=== PATIENT | female | born 1960 | race Caucasian/White ===

== ENCOUNTER → 2016-06-05 | Outpatient (CLI) | payer OTHER ==
[~2016-06-05] MED LIST: ALEVE-D SINUS1 EACH PO; LISINOPRIL-HCTZ1 T19 PO; LISINOPRIL10 MG PO; LORTAB 5/500 TA1 TA1 PO; LYRICA PO; MOBIC15 MG; NEURONTIN300 MG PO; NEXIUM PO; NORCO 10/3251 TAB PO; OMEPRAZOLE40 M1 PO; XANAX0.5 MG PO
--- NOTE | ~2016-06-05 | EKG ---
PATIENT: RICCI EARL UNIT #: [id number] Ventricular Rate: 68 BPM Atrial Rate: 68 BPM P-R Interval: 132 ms QRS Duration: 78 ms Q-T Interval: 422 ms QTC Calculation(Bezet): 448 ms P [place]: 29 degrees Calculated T [place]: 12 degrees Diagnosis Line: Normal sinus rhythm Diagnosis Line: Normal ECG Diagnosis Line: No previous ECGs available Diagnosis Line: Confirmed by RUBEN POZO MD ([id number]) on 06/05/2016 Diagnosis Line: 6:26:13 PM INTERPRETING MD: NOHELIA GIBBS
--- NOTE | ~2016-06-05 | CR63 ---
[facility] A Service of [facility] RADIOLOGY TEXT RESULTS PATIENT: RICCI EARL LOCATION: [facility] : 58 UNIT #: [id number] AGE: [address]: Tyler Reyes MD SEX: F ORDER DR: [id number] [facility] [address] [place], [place] [address] [id number] O MR#: [id number] Acc #: [id number] NAME: RICCI EARL : 1960 SEX: F STUDY DATE/TIME: 06/05/2016 13:19 UNIT: [facility] ROOM: STUDY DESCRIPTION: CR Chest 2 View Attending Physician: Tyler Reyes M.D. Referring Physician: Tyler Reyes M.D. Ordering Physician: Tyler Reyes M.D. Primary Care Physician: No Primary Care Physician MEDICAL IMAGING REPORT This report is preliminary unless electronic signature is present EXAM Chest, 2 views dated 06/05/2016. COMPARISON STUDIES None HISTORY The patient is to have right knee arthroscopy. Preprocedural evaluation. FINDINGS 2 views of the chest were obtained. PA and lateral examination of the chest upright shows a good expansion of the parenchyma with a normal distribution of the pulmonary vascularity. There is no indication of congestion, effusion, infiltrate, tumor, or nodular density. The pleural reflections and diaphragmatic contours are normal. The cardiac silhouette and mediastinal anatomy is within normal limits. There are prominent anterior endplate osteophytes involving 2 adjacent midthoracic vertebral bodies. Postoperative changes are noted in the upper abdomen with surgical ariana, likely related to cholecystectomy. Correlate with history. IMPRESSION Normal chest. Dictated by... Lucretia Laughlin M.D. THIS IS AN ELECTRONICALLY VERIFIED REPORT Lucretia Laughlin M.D. at 06/06/2016 3:39 PM [facility] A Service of [facility] RADIOLOGY TEXT RESULTS PATIENT: RICCI EARL LOCATION: [facility] : 58 UNIT #: [id number] AGE: [address]: Tyler Reyes MD SEX: F ORDER DR: KALLIE/zion TD: 06/05/2016 17:10 JOB #: [id number] MEDICAL IMAGING REPORT COPY
[2016-06-05 13:00] LABS: URINE APPEARANCE CLEAR; URINE BILIRUBIN NEG (NEG); URINE BLOOD NEG (NEG); URINE COLOR YELLOW; URINE GLUCOSE NEG (NEG); URINE KETONE 1+ (NEG); URINE LEUKOCYTE ESTERASE 2+ (NEG); URINE NITRATE NEG (NEG); URINE PROTEIN NEG (NEG); URINE SPECIFIC GRAVITY 1.023 (1.003-1.035); URINE UROBILINOGEN 0.2 MG/DL (NEG)
[2016-06-05 13:02] LABS: BASOPHIL# 0.1 X10e3 (0-0.3); BASOPHIL% 0.8 % (0-2.5); CULTURE INDICATED? YES; EOSINOPHIL# 0.2 X10e3 (0-0.7); EOSINOPHIL% 2.7 % (0.0-7.0); HEMOGLOBIN 14.5 gm/dL (12.0-16.0); LYMPHOCYTE# 3.6 X10e3 (1.0-3.5); LYMPHOCYTE% 43.1 % (17.0-45.0); MEAN CELL VOLUME 85.8 FL (83-96); MEAN CORPUSCULAR HEMOGLOBIN 29.6 PG (28-34); MEAN CORPUSCULAR HGB CONC 34.5 g/dL (30-36); MEAN PLATELET VOLUME 8.5 FL (6.5-11.5); MONOCYTE# 0.7 X10e3 (0-1.0); MONOCYTE% 8.7 % (3.0-12.0); NEUTROPHIL# 3.7 X10e3 (1.5-7.1); NEUTROPHIL% 44.7 % (40-75); PLATELET COUNT 275 X10e3 (140-420); RED CELL DISTRIBUTION WIDTH 12.3 % (11.0-15.5); URBCS1 AUWI 0-2 /[HPF] (0-2); URINE BACTERIA AUWI NEG (NEGATIVE); URINE SQUAMOUS EPITHELIAL CELL OCC /[HPF]; WHITE BLOOD COUNT 8.3 X10e3 (4.0-10.5)
[2016-06-05 13:03] LABS: DIFF IND NO
[2016-06-05 13:11] LABS: URINE SOURCE CLEAN CATCH
[2016-06-05 13:15] LABS: URINE MUCUS PRESENT
[2016-06-05 13:38] LABS: BLOOD UREA NITROGEN 21 mg/dL (9-23); CALCIUM SERUM 9.8 mg/dL (8.4-10.2); CARBON DIOXIDE 26 mmol/L (22-31); CHLORIDE 100 mmol/L (100-111); GLOM FILT RATE Estimated ABOVE60 mL/min (>60); GLUCOSE FASTING 90 mg/dL (70-110); POTASSIUM 4.7 mmol/L (3.5-5.1); SODIUM 135 mmol/L (135-145)
== END | disposition home or self-care (01) ==
LOC: CAMB 11:32
PROVIDERS: Orthopaedic Surgery
DX: Z01.818 Encounter for other preprocedural examination (principal); S83.241A Other tear of medial meniscus, current injury, right knee, initial encounter; F41.9 Anxiety disorder, unspecified; I10 Essential (primary) hypertension; E03.9 Hypothyroidism, unspecified
CPT/HCPCS: 36415; 71020; 80048; 81003; 85025; 87086; 93005

== ENCOUNTER → 2016-06-18 | Day surgery (SDC) | payer OTHER ==
--- NOTE | ~2016-06-18 | OR ---
Unit #: [id number] #: [id number] Patient: RICCI EARL [id number] [address] [address] [id number] O MR#: [id number] NAME: RICCI EARL ROOM: Date of Procedure: 06/18/2016 Admission Date: 06/18/2016 Surgeon: Tyler Reyes M.D. : 1960 Attending Physician: Tyler Reyes M.D. Referring Physician: Tyler Reyes M.D. Primary Care Physician: Primary Care Physician No OPERATIVE REPORT PREOPERATIVE DIAGNOSIS Medial meniscal tear of the right knee. POSTOPERATIVE DIAGNOSES Medial meniscal tear of the right knee with osteoarthritis. PROCEDURES PERFORMED Arthroscopic partial medial meniscectomy. DESCRIPTION OF PROCEDURE The patient was brought to the operating room and given general anesthetic. Tourniquet placed around the right thigh. The right leg was exsanguinated. Tourniquet inflated to 300, placed in a leg mcclellan and prepped and draped through the inferolateral portal. The knee was visualized. The suprapatellar pouch was free of debris. The medial and lateral gutters were free of debris. The medial compartment was entered. There was a tear in the posterior horn of the medial meniscus. This was resected using a straight and up-biting basket and then balanced with the 3.5 incisor blade. The patient did have grade 3 to 4 chondral changes in the medial compartment. The patient had the lateral compartment visualized and it was a fairly well maintained. The knee then had all the fluid removed from the joint and the knee was injected with 15 mL of 0.5% plain Marcaine. Sterile dressing applied and the patient's tourniquet was released and general anesthetic reversed. Dictated by... Patricia Tinoco/troy TD: 06/19/2016 07:22 JOB #: [id number] Unit #: [id number] #: [id number] Patient: RICCI EARL OPERATIVE REPORT X Tyler Reyes MD X PROCEDURE OPERATIVE NOTE
== END | disposition home or self-care (01) ==
LOC: CSUR 05:44
DX: S83.241A Other tear of medial meniscus, current injury, right knee, initial encounter (principal); M17.11 Unilateral primary osteoarthritis, right knee; M25.361 Other instability, right knee; M25.461 Effusion, right knee; F41.9 Anxiety disorder, unspecified; R01.1 Cardiac murmur, unspecified; I10 Essential (primary) hypertension; E03.9 Hypothyroidism, unspecified; M54.9 Dorsalgia, unspecified; G89.29 Other chronic pain; Z90.49 Acquired absence of other specified parts of digestive tract; Z90.710 Acquired absence of both cervix and uterus; Z98.890 Other specified postprocedural states; Z79.891 Long term (current) use of opiate analgesic; Z79.899 Other long term (current) drug therapy; Z91.040 Latex allergy status; Z82.49 Family history of ischemic heart disease and other diseases of the circulatory system; Z83.49 Family history of other endocrine, nutritional and metabolic diseases; X58.XXXA Exposure to other specified factors, initial encounter
CPT/HCPCS: 87086; J2250; J2405; J2765; J3010